=== PATIENT | female | born 1980 | race Caucasian/White ===

== ENCOUNTER → 2024-02-19 09:38 | Outpatient (BNVA) | payer OTHER, SELFPAY | PROVIDERS: Visit Provider Emergency Medicine | DX: R06.02 Shortness of breath (principal); H53.9 Unspecified visual disturbance; I10 Essential (primary) hypertension | CPT/HCPCS: 71046; 80053; 80061; 83880; 85025; 93005 ==

== ENCOUNTER → 2024-02-21 09:59 | Outpatient (BNVA) | payer OTHER, SELFPAY | PROVIDERS: PCP Nurse Practitioner; Visit Provider Nurse Practitioner | DX: D64.9 Anemia, unspecified (principal) | CPT/HCPCS: 82728; 83550; 84443; 85025 ==

== ENCOUNTER 2024-02-23 07:23 | Outpatient (CLI) | payer OTHER, SELFPAY ==
--- NOTE | 2024-02-23 08:00 | CTR_ITS ---
PROCEDURE INFORMATION: Exam: CT Chest With Contrast; Diagnostic Exam date and time: 02/23/2024 7:49 AM Age: 43 years old Clinical indication: Shortness of breath; Additional info: R06.02 - shortness of breath, lungs: The lungs are hyperinflated. There is volume loss TECHNIQUE: Imaging protocol: Diagnostic computed tomography of the chest with contrast. Radiation optimization: All CT scans at this facility use at least one of these dose optimization techniques: automated exposure control; mA and/or kV adjustment per patient size (includes targeted exams where dose is matched to clinical indication); or iterative reconstruction. Contrast material: OMNI 350; Contrast volume: 100 ml; Contrast route: INTRAVENOUS (IV); COMPARISON: CR XR chest 2V* [id number] 02/19/2024 9:50 AM RADIATION DOSE METRICS: Total DLP (mGy-cm): 293.1 FINDINGS: Lungs: There is atelectasis of the right upper lobe with complete collapse of the right middle lobe. There is a parenchymal nodule involving the right upper lobe measuring 7.7 mm in size. Pleural spaces: Unremarkable. No pneumothorax. No pleural effusion. Heart: Unremarkable. No cardiomegaly. No pericardial effusion. Lymph nodes: Within the retroperitoneum, There is a partially imaged slightly enlarged lymph node to the left of the aorta measuring 11 mm in size. There are enlarged mediastinal and right hilar lymph nodes. Vasculature: Marked the aorta is normal in caliber without evidence of aneurysm formation or dissection. The central pulmonary arteries are normal. Mediastinum: There is either a single large mass are multiple conglomeration of masses within the anterior superior mediastinum partially surrounding the right brachiocephalic and subclavian arteries and right common carotid artery. There is mass effect on the trachea shifting the trachea to the left there is also slight mass effect on the right mainstem bronchus. There is mass effect on the right upper lobe bronchus with significant mass effect on the right middle lobe bronchus with complete atelectasis of the right middle lobe. There is extension of the mass through the anterior chest wall primarily between the sternum and 2nd rib. There are additional large lymph nodes within the mediastinum and right hilum as well as within the base of the neck bilaterally. Maximal dimension is a proximally 12.4 cm AP dimension by 13.8 cm transverse dimension by 17.4 cm craniocaudad dimension. Bones and joints: No blastic or lytic bony lesions are appreciated. Soft tissues: Otherwise unremarkable. CT/CT chest w con* [id number] IMPRESSION: 1. Large anterior superior mediastinal mass with extension through the anterior chest wall with mediastinal adenopathy, right hilar adenopathy base of neck adenopathy, and suspected retroperitoneal adenopathy. There is a single parenchymal nodule involving the right upper lobe. Details are given above. Findings are likely related to lymphoma. Other possible considerations would include thymic tumors or germ cell tumors.
[2024-02-23] MEDS: iohexol 350 mg/mL 500 mL Btl (per mL) IV (08:06)
== END 2024-02-23 07:24 | disposition home or self-care (01) ==
LOC: RAD 07:23
PROVIDERS: PCP Nurse Practitioner; Visit Provider Emergency Medicine
DX: J98.11 Atelectasis (principal); R91.8 Other nonspecific abnormal finding of lung field; J98.19 Other pulmonary collapse; R59.0 Localized enlarged lymph nodes; J98.59 Other diseases of mediastinum, not elsewhere classified; D14.2 Benign neoplasm of trachea; H53.9 Unspecified visual disturbance
CPT/HCPCS: 71260; Q9967

== ENCOUNTER → 2024-03-01 13:07 | Outpatient (CLI) | payer OTHER, SELFPAY ==
--- NOTE | 2024-03-01 14:30 | MR_ITS ---
WS: [id number] MRI HEAD WITHOUT CONTRAST TECHNIQUE: Sagittal T1, T2 axial, T2 axial FLAIR, axial and coronal T1 images, axial susceptibility w eighted imaging, axial diffusion weighted images, and coronal T2 images were obtained. CLINICAL INFORMATION: H53.9 - Unspecified visual disturbance COMPARISON: None. FINDINGS: No evidence of restricted diffusion to suggest acute ischemia. Ventricular system and basal cisterns are patent. 2 or 3 tiny foci of T2 hyperintensity in the supratentorial white matter nonspecific in a patient this age but can be seen with hypertension, diabetes, and migraine headaches. Normal posterior fossa. Normal vascular flow voids at the skull base. No extra-axial fluid collection s. No evidence of mass or mass effect. Paranasal sinuses are well aerated. Normal posterior nasophary nx. Mastoid air cells are well aerated. No hemosiderin on the susceptibility weighted images. Normal optic chiasm and pituitary infundibulum. Temporal lobes and hippocampal formations are normal in appearance. No other acute findings. MR/MR head wo con* [id number] IMPRESSION: 1. No evidence of restricted diffusion to suggest acute ischemia. 2. A few tiny foci of T2 hyperintensity in the supratentorial white matter non specific in a patient this age but can be seen with hypertension, diabetes, and migraine headaches. 3. No other suspicious intracranial signal abnormalities 4. No other suspicious findings.
== END | disposition home or self-care (01) ==
LOC: RAD 13:07
PROVIDERS: PCP Nurse Practitioner; Visit Provider Nurse Practitioner
DX: H53.9 Unspecified visual disturbance (principal); G93.89 Other specified disorders of brain
CPT/HCPCS: 70551; 82728; 83550; 84443; 85025

== ENCOUNTER 2024-03-03 15:30 | Outpatient (CLI) | payer OTHER, SELFPAY ==
[2024-03-03] MEDS: iohexol 350 mg/mL 500 mL Btl (per mL) PO (14:22)
[2024-03-03] MEDS: iohexol 350 mg/mL 500 mL Btl (per mL) IV (14:33)
--- NOTE | 2024-03-03 15:30 | CTR_ITS ---
PROCEDURE INFORMATION: Exam: CT Abdomen And Pelvis With Contrast Exam date and time: 03/03/2024 2:30 PM Age: 43 years old Clinical indication: Mass, lump, or swelling; Generalized; Patient HX: Localized swelling, mass and lump on trunk. PT states lump on breast bone as indicated on CT chest last wk. PT denies any palpable masses/lumps on abd region. ; Additional info: R22.2 - localized swelling, mass and lump, trunk, large mass; Possible lymphoma TECHNIQUE: Imaging protocol: Computed tomography of the abdomen and pelvis with contrast. Radiation optimization: All CT scans at this facility use at least one of these dose optimization techniques: automated exposure control; mA and/or kV adjustment per patient size (includes targeted exams where dose is matched to clinical indication); or iterative reconstruction. Contrast material: OMNI 350; Contrast volume: 95 ml; Contrast route: INTRAVENOUS (IV); COMPARISON: CT chest w con* [id number] 02/23/2024 7:49 AM RADIATION DOSE METRICS: Total DLP (mGy-cm): 310.13 FINDINGS: Liver: Normal. No mass. Gallbladder and biliary ducts: Normal. No calcified stones. No ductal dilation. Pancreas: Normal. No ductal dilation. Spleen: The spleen is not enlarged, 10 cm. Adrenal glands: Normal. No mass. Kidneys and ureters: Normal. No hydronephrosis. Stomach and bowel: Unremarkable. No obstruction. No mucosal thickening. Appendix: No evidence of appendicitis. Intraperitoneal space: Unremarkable. No free air. No significant fluid collection. Vasculature: Unremarkable. No abdominal aortic aneurysm. Lymph nodes: There is moderate retroperitoneal/periaortic adenopathy extending along the left pelvic sidewall. The largest lymph node is along the left pelvic sidewall (3-71) and measures 1.8 x 3.8 cm in size. No Urinary bladder: Unremarkable as visualized. Reproductive: Unremarkable as visualized. Bones/joints: Unremarkable. No acute fracture. Soft tissues: Barely imaged mass infiltrating the epicardial fat on the right side. CT/CT abdomen pelvis w con* [id number] IMPRESSION: Moderate suspicious adenopathy.
== END 2024-03-03 15:31 | disposition home or self-care (01) ==
PROVIDERS: PCP Nurse Practitioner; Visit Provider Nurse Practitioner
DX: R22.2 Localized swelling, mass and lump, trunk (principal)
CPT/HCPCS: 74177; Q9967

== ENCOUNTER 2024-07-06 07:16 | Oncology outpatient (recurring) (ONCR) | payer OTHER, SELFPAY ==
[2024-07-06 08:03] LABS: Basophils # 0.1 10^3/uL (0.0-0.1); Basophils % 2.6 %; Eosinophils # 0.2 10^3/uL (0.0-0.8); Eosinophils % 4.7 %; Lymphocytes # 1.5 10^3/uL (0.8-4.8); Lymphocytes % 34.6 %; Mean Corpuscular HGB Conc 32.2 g/dL (30-55); Mean Corpuscular Hemoglobin 29.5 pg (27-33); Mean Corpuscular Volume 91.6 fl (85-98); Mean Platelet Volume 10.1 fL (7.4-10.4); Monocytes # 0.5 10^3/uL (0.2-0.9); Monocytes % 11.4 %; Neutrophils # 1.95 10^3/uL (1.8-7.7); Neutrophils % 46.2 %; Nucleated Red Blood Cells % 0 %; Platelet Count 414 10^3/cmm (157-399); Red Blood Count 4.04 10^6/uL (3.85-5.65); White Blood Count 4.22 10^3/uL (3.29-11.43)
[2024-07-06 08:20] LABS: Alanine Aminotransferase 7 U/L (0-33); Albumin Level 4.3 g/dL (3.5-5.2); Alkaline Phosphatase 62 U/L (35-105); Anion Gap 13.5 (5-19); Aspartate Amino Transferase 13 U/L (0-32); Blood Urea Nitrogen 13 mg/dL (6-20); Calcium 8.3 mg/dL (8.5-10.5); Carbon Dioxide 26 mmol/L (22-29); Chloride 105 mmol/L (98-107); Creatinine Clr Calc Pharmacy 95.1708; Ferritin 176 ng/mL (15-150); Globulin 2.1 g/dL (1.3-4.6); Glomerular Filtration Rate 78.7 mL/min (90-130); Glucose 108 mg/dL (65-115); Iron 46 ug/dL (37-145); Osmolality Calculated 291 mOsm/kg (285-295); Percent Saturation 19.5 % (20-50); Potassium 4.5 mmol/L (3.5-5.1); Sodium 140 mmol/L (136-145); Total Bilirubin 0.2 mg/dL (0.15-1.2); Total Iron Binding Capacity 235 mcg/dl; Total Protein 6.4 g/dL (6.6-8.7); Unsaturated Iron Binding 189 ug/dL (112-347)
[2024-07-06 08:24] LABS: Lactate Dehydrogenase 172 U/L (135-214)
[2024-07-06 09:21] LABS: Uric Acid 4.6 mg/dL (2.4-5.7)
[2024-07-06 09:28] LABS: Folate Level 9.2 ng/mL (4.8-37.3)
[2024-07-06] MEDS: sodium chloride 0.9% 250 ML 75 ML IV (09:28)
[2024-07-06] MEDS: palonosetron 0.25 mg/5 mL SDV IVP (09:28)
[2024-07-06] MEDS: aprepitant 130 mg/18 ml SDV IVP (09:29)
[2024-07-06] MEDS: famotidine 20 mg/2 mL INJ IVP (09:36)
[2024-07-06] MEDS: dexamethasone 4 mg/mL INJ 12 MG IVP (09:39)
[2024-07-06] MEDS: OLANZapine 5 mg TABLET PO (09:40)
[2024-07-06] MEDS: DOXOrubicin 2 mg/ml MDV 46 MG IVP (10:27)
[2024-07-06] MEDS: VINBLASTINE IV (10:42)
[2024-07-06] MEDS: SODIUM CHLORIDE 0.9% IV ×2 (10:42→11:15)
[2024-07-06] MEDS: DACARBAZINE IV (11:15)
[2024-07-06] MEDS: nivolumab 480 MG in sodium chloride 0.9% 250 ML 596 MG IV (12:40)
[2024-07-06 13:55] VITALS: BP 100/61; PULSE 75; TEMP 36.4; O2SAT 97
== END 2024-07-06 23:59 | disposition home or self-care (01) ==
PROVIDERS: Internal Medicine; PCP Nurse Practitioner; Visit Provider Internal Medicine Hematology & Oncology
DX: Z51.11 Encounter for antineoplastic chemotherapy (principal); Z51.12 Encounter for antineoplastic immunotherapy; C81.90 Hodgkin lymphoma, unspecified, unspecified site; Z79.899 Other long term (current) drug therapy
CPT/HCPCS: 80053; 82728; 82746; 83540; 83550; 83615; 84550; 85025; 96375; 96409; 96411; 96413; 96417; A4222; J0185; J1100; J2469; J3490; J7040; J7050; J9000; J9130; J9299; J9360

== ENCOUNTER 2024-07-19 06:43 | Oncology outpatient (recurring) (ONCR) | payer OTHER, SELFPAY ==
[2024-07-19 07:11] LABS: Basophils # 0.1 10^3/uL (0.0-0.1); Basophils % 3.4 %; Eosinophils # 0.1 10^3/uL (0.0-0.8); Eosinophils % 4.2 %; Hematocrit 36.1 % (36-47); Lymphocytes # 1.5 10^3/uL (0.8-4.8); Mean Corpuscular HGB Conc 32.4 g/dL (30-55); Mean Corpuscular Hemoglobin 29.8 pg (27-33); Mean Corpuscular Volume 92.1 fl (85-98); Monocytes # 0.4 10^3/uL (0.2-0.9); Monocytes % 16.9 %; Neutrophils % 16.1 %; Nucleated Red Blood Cells % 0 %; Platelet Count 463 10^3/cmm (157-399); Red Blood Count 3.92 10^6/uL (3.85-5.65); Red Cell Distribution Width 21.8 % (12.1-15.1); White Blood Count 2.61 10^3/uL (3.29-11.43)
[2024-07-19 07:19] LABS: Alanine Aminotransferase 6 U/L (0-33); Albumin Level 4.2 g/dL (3.5-5.2); Alkaline Phosphatase 61 U/L (35-105); Anion Gap 15.9 (5-19); Aspartate Amino Transferase 18 U/L (0-32); Blood Urea Nitrogen 10 mg/dL (6-20); Calcium 8.9 mg/dL (8.5-10.5); Carbon Dioxide 22 mmol/L (22-29); Chloride 104 mmol/L (98-107); Globulin 2.5 g/dL (1.3-4.6); Glomerular Filtration Rate 109.6 mL/min (90-130); Glucose 147 mg/dL (65-115); Magnesium 1.7 mg/dL (1.7-2.3); Osmolality Calculated 288 mOsm/kg (285-295); Potassium 3.9 mmol/L (3.5-5.1); Sodium 138 mmol/L (136-145); Total Bilirubin 0.2 mg/dL (0.15-1.2); Total Protein 6.7 g/dL (6.6-8.7); Uric Acid 3.7 mg/dL (2.4-5.7)
[2024-07-19 07:32] LABS: Neutrophils # 0.42 10^3/uL (1.8-7.7)
[2024-07-19 09:47] VITALS: BP 115/76; PULSE 69; RESP 16; TEMP 36.1; O2SAT 99
[2024-07-19 09:51] VITALS: BMI 24.5
[2024-07-19] MEDS: OLANZapine 5 mg TABLET 2.5 MG PO (10:33)
[2024-07-19] MEDS: sodium chloride 0.9% 250 ML 75 ML IV (10:35)
[2024-07-19] MEDS: dexamethasone 4 mg/mL INJ 12 MG IVP (10:48)
[2024-07-19] MEDS: palonosetron 0.25 mg/5 mL SDV IVP (10:51)
[2024-07-19] MEDS: famotidine 20 mg/2 mL INJ IVP (10:53)
[2024-07-19] MEDS: aprepitant 130 mg/18 ml SDV IVP (10:55)
[2024-07-19] MEDS: DOXOrubicin 2 mg/ml MDV 46 MG IVP (11:23)
[2024-07-19] MEDS: SODIUM CHLORIDE 0.9% IV ×2 (11:38→12:28)
[2024-07-19] MEDS: VINBLASTINE IV (11:38)
[2024-07-19] MEDS: DACARBAZINE IV (12:28)
[2024-07-19 14:00] VITALS: BP 138/75; PULSE 86; RESP 16; TEMP 36.9; O2SAT 95
== END 2024-07-22 23:59 | disposition home or self-care (01) ==
PROVIDERS: Internal Medicine; PCP Nurse Practitioner; Visit Provider Internal Medicine Hematology & Oncology
DX: Z51.11 Encounter for antineoplastic chemotherapy (principal); C81.22 Mixed cellularity Hodgkin lymphoma, intrathoracic lymph nodes; D70.1 Agranulocytosis secondary to cancer chemotherapy; T45.1X5A Adverse effect of antineoplastic and immunosuppressive drugs, initial encounter; N91.2 Amenorrhea, unspecified; Z79.52 Long term (current) use of systemic steroids; Z79.899 Other long term (current) drug therapy
CPT/HCPCS: 80053; 83735; 84550; 85025; 96375; 96411; 96413; 96417; J0185; J1100; J2469; J3490; J7040; J7050; J9000; J9130; J9360

== ENCOUNTER 2024-08-03 08:00 | Oncology outpatient (recurring) (ONCR) | payer OTHER, SELFPAY ==
[2024-07-24 07:42] LABS: Basophils # 0.1 10^3/uL (0.0-0.1); Basophils % 3.5 %; Eosinophils # 0.1 10^3/uL (0.0-0.8); Hematocrit 37.3 % (36-47); Lymphocytes # 1.3 10^3/uL (0.8-4.8); Lymphocytes % 37.4 %; Monocytes # 0.1 10^3/uL (0.2-0.9); Monocytes % 2.6 %; Neutrophils % 49.8 %; Nucleated Red Blood Cells % 0 %; Platelet Count 330 10^3/cmm (157-399); Red Blood Count 3.97 10^6/uL (3.85-5.65); Red Cell Distribution Width 20.9 % (12.1-15.1); White Blood Count 3.42 10^3/uL (3.29-11.43)
[2024-07-24 08:04] LABS: Alanine Aminotransferase 11 U/L (0-33); Albumin Level 4.2 g/dL (3.5-5.2); Alkaline Phosphatase 54 U/L (35-105); Anion Gap 16.3 (5-19); Aspartate Amino Transferase 19 U/L (0-32); Blood Urea Nitrogen 13 mg/dL (6-20); Calcium 9.1 mg/dL (8.5-10.5); Carbon Dioxide 24 mmol/L (22-29); Chloride 103 mmol/L (98-107); Globulin 2.5 g/dL (1.3-4.6); Glomerular Filtration Rate 135.3 mL/min (90-130); Glucose 105 mg/dL (65-115); Osmolality Calculated 288 mOsm/kg (285-295); Potassium 4.3 mmol/L (3.5-5.1); Sodium 139 mmol/L (136-145); Total Bilirubin 0.3 mg/dL (0.15-1.2); Total Protein 6.7 g/dL (6.6-8.7)
[2024-08-03 08:02] LABS: Basophils # 0.1 10^3/uL (0.0-0.1); Basophils % 4.4 %; Eosinophils # 0.1 10^3/uL (0.0-0.8); Eosinophils % 5.2 %; Hematocrit 33.5 % (36-47); Lymphocytes # 1.4 10^3/uL (0.8-4.8); Lymphocytes % 52.6 %; Mean Corpuscular HGB Conc 32.8 g/dL (30-55); Mean Corpuscular Hemoglobin 30.9 pg (27-33); Mean Corpuscular Volume 94.1 fl (85-98); Mean Platelet Volume 9.7 fL (7.4-10.4); Monocytes # 0.5 10^3/uL (0.2-0.9); Monocytes % 19.3 %; Neutrophils % 18.1 %; Nucleated Red Blood Cells % 0 %; Platelet Count 378 10^3/cmm (157-399); Red Blood Count 3.56 10^6/uL (3.85-5.65); Red Cell Distribution Width 20.7 % (12.1-15.1)
[2024-08-03 08:28] LABS: HCG Qualitative Urine. Negative (Negative)
[2024-08-03 08:33] LABS: Alanine Aminotransferase 7 U/L (0-33); Albumin Level 4.1 g/dL (3.5-5.2); Alkaline Phosphatase 52 U/L (35-105); Anion Gap 14.9 (5-19); Aspartate Amino Transferase 15 U/L (0-32); Blood Urea Nitrogen 13 mg/dL (6-20); Calcium 8.8 mg/dL (8.5-10.5); Carbon Dioxide 24 mmol/L (22-29); Chloride 103 mmol/L (98-107); Creatinine Clr Calc Pharmacy 128.3375; Globulin 2.4 g/dL (1.3-4.6); Glomerular Filtration Rate 109.6 mL/min (90-130); Glucose 121 mg/dL (65-115); Osmolality Calculated 287 mOsm/kg (285-295); Potassium 3.9 mmol/L (3.5-5.1); Sodium 138 mmol/L (136-145); Total Bilirubin 0.2 mg/dL (0.15-1.2); Total Protein 6.5 g/dL (6.6-8.7)
[2024-08-03 08:34] LABS: Follicle Stimulating Hormone 51.2 mIU/mL; Neutrophils # 0.49 10^3/uL (1.8-7.7)
[2024-08-03] MEDS: sodium chloride 0.9% 250 ML 50 ML IV (10:48)
[2024-08-03] MEDS: acetaminophen 325 mg Tablet 650 MG PO (10:48)
[2024-08-03] MEDS: aprepitant 130 mg/18 ml SDV IVP (10:49)
[2024-08-03] MEDS: dexamethasone 4 mg/mL INJ 12 MG IVP (10:56)
[2024-08-03] MEDS: famotidine 20 mg/2 mL INJ 40 MG IVP (11:00)
[2024-08-03] MEDS: palonosetron 0.25 mg/5 mL SDV IVP (11:04)
[2024-08-03] MEDS: DOXOrubicin 2 mg/ml MDV 46 MG IVP (11:50)
[2024-08-03] MEDS: SODIUM CHLORIDE 0.9% IV ×2 (12:03→12:30)
[2024-08-03] MEDS: VINBLASTINE IV (12:03)
[2024-08-03] MEDS: DACARBAZINE IV (12:30)
[2024-08-03] MEDS: nivolumab 480 MG in sodium chloride 0.9% 250 ML 596 MG IV (13:51)
[2024-08-03 15:01] VITALS: BP 123/59; PULSE 60; RESP 16; TEMP 36.4; O2SAT 99
== END 2024-08-03 23:59 | disposition home or self-care (01) ==
PROVIDERS: Internal Medicine; Nurse Practitioner; PCP Nurse Practitioner; Visit Provider Internal Medicine Medical Oncology
DX: Z53.9 Procedure and treatment not carried out, unspecified reason (principal); C81.90 Hodgkin lymphoma, unspecified, unspecified site; Z79.620 Long term (current) use of immunosuppressive biologic; N91.2 Amenorrhea, unspecified; Z51.11 Encounter for antineoplastic chemotherapy
CPT/HCPCS: 36591; 80053; 81025; 82670; 83001; 83002; 85025; 96375; 96409; 96411; 96413; 96417; J0185; J1100; J2469; J3490; J7040; J7050; J9000; J9130; J9299; J9360

== ENCOUNTER 2024-08-17 07:05 | Oncology outpatient (recurring) (ONCR) | payer OTHER, SELFPAY ==
[2024-08-17 08:03] LABS: Basophils # 0.1 10^3/uL (0.0-0.1); Basophils % 3.3 %; Eosinophils # 0.1 10^3/uL (0.0-0.8); Eosinophils % 4.5 %; Lymphocytes # 1.6 10^3/uL (0.8-4.8); Lymphocytes % 65.3 %; Mean Corpuscular HGB Conc 33.8 g/dL (30-55); Mean Corpuscular Hemoglobin 32.1 pg (27-33); Mean Platelet Volume 9.8 fL (7.4-10.4); Monocytes # 0.4 10^3/uL (0.2-0.9); Monocytes % 17.1 %; Neutrophils % 9.4 %; Nucleated Red Blood Cells % 0 %; Platelet Count 347 10^3/cmm (157-399); Red Blood Count 3.58 10^6/uL (3.85-5.65); Red Cell Distribution Width 18.6 % (12.1-15.1); White Blood Count 2.45 10^3/uL (3.29-11.43)
[2024-08-17 08:31] LABS: Alanine Aminotransferase 8 U/L (0-33); Albumin Level 4.2 g/dL (3.5-5.2); Alkaline Phosphatase 57 U/L (35-105); Aspartate Amino Transferase 17 U/L (0-32); Blood Urea Nitrogen 9 mg/dL (6-20); Calcium 8.8 mg/dL (8.5-10.5); Carbon Dioxide 23 mmol/L (22-29); Chloride 105 mmol/L (98-107); Globulin 2.2 g/dL (1.3-4.6); Glomerular Filtration Rate 91.8 mL/min (90-130); Glucose 148 mg/dL (65-115); Lactate Dehydrogenase 139 U/L (135-214); Osmolality Calculated 291 mOsm/kg (285-295); Sodium 140 mmol/L (136-145); Thyroid Stimulating Hormone 1.41 uIU/mL (0.27-4.20); Total Bilirubin 0.2 mg/dL (0.15-1.2); Total Protein 6.4 g/dL (6.6-8.7)
[2024-08-17 08:36] LABS: Neutrophils # 0.23 10^3/uL (1.8-7.7)
[2024-08-17] MEDS: sodium chloride 0.9% 250 ML 75 ML IV (11:51)
[2024-08-17] MEDS: dexamethasone 4 mg/mL INJ 12 MG IVP (11:54)
[2024-08-17] MEDS: palonosetron 0.25 mg/5 mL SDV IVP (11:59)
[2024-08-17] MEDS: aprepitant 130 mg/18 ml SDV IVP (12:03)
[2024-08-17] MEDS: famotidine 20 mg/2 mL INJ 40 MG IVP (12:12)
[2024-08-17] MEDS: DOXOrubicin 2 mg/ml MDV 46 MG IVP (13:11)
[2024-08-17] MEDS: SODIUM CHLORIDE 0.9% IV ×2 (13:30→13:56)
[2024-08-17] MEDS: VINBLASTINE IV (13:30)
[2024-08-17] MEDS: DACARBAZINE IV (13:56)
[2024-08-17] MEDS: sodium chloride 0.9% (100 ml) 100 ML 35 ML (14:32)
== END 2024-08-22 23:59 | disposition home or self-care (01) ==
PROVIDERS: Nurse Practitioner; PCP Nurse Practitioner; Visit Provider Internal Medicine
DX: C81.22 Mixed cellularity Hodgkin lymphoma, intrathoracic lymph nodes (principal); Z51.11 Encounter for antineoplastic chemotherapy; Z79.52 Long term (current) use of systemic steroids; Z87.891 Personal history of nicotine dependence; D50.9 Iron deficiency anemia, unspecified; D70.1 Agranulocytosis secondary to cancer chemotherapy; T45.1X5A Adverse effect of antineoplastic and immunosuppressive drugs, initial encounter
CPT/HCPCS: 80053; 83615; 84443; 85025; 96361; 96375; 96409; 96411; 96413; 96417; J0185; J1100; J2469; J3490; J7040; J7050; J9000; J9130; J9360

== ENCOUNTER 2024-08-31 07:03 | Oncology outpatient (recurring) (ONCR) | payer OTHER, SELFPAY ==
[2024-08-31 08:03] LABS: Basophils # 0.1 10^3/uL (0.0-0.1); Basophils % 3.4 %; Eosinophils # 0.1 10^3/uL (0.0-0.8); Eosinophils % 3.9 %; Hematocrit 34.2 % (36-47); Lymphocytes # 1.4 10^3/uL (0.8-4.8); Lymphocytes % 66.7 %; Mean Corpuscular Hemoglobin 32.1 pg (27-33); Mean Corpuscular Volume 97.2 fl (85-98); Mean Platelet Volume 10.1 fL (7.4-10.4); Monocytes # 0.3 10^3/uL (0.2-0.9); Monocytes % 16.2 %; Neutrophils % 9.8 %; Nucleated Red Blood Cells % 0 %; Platelet Count 334 10^3/cmm (157-399); Red Blood Count 3.52 10^6/uL (3.85-5.65); Red Cell Distribution Width 17.1 % (12.1-15.1); White Blood Count 2.04 10^3/uL (3.29-11.43)
[2024-08-31 08:19] LABS: Alanine Aminotransferase 9 U/L (0-33); Albumin Level 4.1 g/dL (3.5-5.2); Alkaline Phosphatase 47 U/L (35-105); Anion Gap 14.1 (5-19); Aspartate Amino Transferase 12 U/L (0-32); Blood Urea Nitrogen 18 mg/dL (6-20); Calcium 8.8 mg/dL (8.5-10.5); Carbon Dioxide 24 mmol/L (22-29); Chloride 105 mmol/L (98-107); Globulin 2.3 g/dL (1.3-4.6); Glomerular Filtration Rate 109.6 mL/min (90-130); Glucose 113 mg/dL (65-115); Lactate Dehydrogenase 138 U/L (135-214); Osmolality Calculated 291 mOsm/kg (285-295); Phosphorus 4.6 mg/dL (2.5-4.5); Potassium 4.1 mmol/L (3.5-5.1); Sodium 139 mmol/L (136-145); Total Bilirubin 0.2 mg/dL (0.15-1.2); Total Protein 6.4 g/dL (6.6-8.7); Uric Acid 3.3 mg/dL (2.4-5.7)
[2024-08-31 08:20] LABS: Erythrocyte Sedimentation Rate 1 mm/hr (0-15)
[2024-08-31] MEDS: sodium chloride 0.9% 250 ML 75 ML IV (11:21)
[2024-08-31] MEDS: famotidine 20 mg/2 mL INJ 40 MG IVP (11:23)
[2024-08-31] MEDS: aprepitant 130 mg/18 ml SDV IVP (11:26)
[2024-08-31] MEDS: palonosetron 0.25 mg/5 mL SDV IVP (11:31)
[2024-08-31] MEDS: dexamethasone 4 mg/mL INJ 12 MG IVP (11:34)
[2024-08-31] MEDS: DOXOrubicin 2 mg/ml MDV 46 MG IVP (12:13)
[2024-08-31] MEDS: SODIUM CHLORIDE 0.9% IV ×2 (12:24→13:17)
[2024-08-31] MEDS: VINBLASTINE IV (12:24)
[2024-08-31] MEDS: DACARBAZINE IV (13:17)
[2024-08-31] MEDS: nivolumab 480 MG in sodium chloride 0.9% 250 ML 596 MG IV (14:30)
[2024-08-31 15:45] VITALS: BP 105/64; PULSE 74; O2SAT 96
== END 2024-08-31 23:59 | disposition home or self-care (01) ==
PROVIDERS: Nurse Practitioner; PCP Nurse Practitioner; Visit Provider Internal Medicine
DX: C81.22 Mixed cellularity Hodgkin lymphoma, intrathoracic lymph nodes (principal); Z51.11 Encounter for antineoplastic chemotherapy; Z51.12 Encounter for antineoplastic immunotherapy; D50.9 Iron deficiency anemia, unspecified; D70.1 Agranulocytosis secondary to cancer chemotherapy; I87.1 Compression of vein; T45.1X5A Adverse effect of antineoplastic and immunosuppressive drugs, initial encounter; Z79.899 Other long term (current) drug therapy
CPT/HCPCS: 80053; 83615; 84100; 84550; 85025; 85651; 96375; 96411; 96413; 96417; A4222; J0185; J1100; J2469; J3490; J7040; J7050; J9000; J9130; J9299; J9360

== ENCOUNTER 2024-09-14 08:30 | Oncology outpatient (recurring) (ONCR) | payer OTHER, SELFPAY ==
[2024-09-07 14:02] LABS: Basophils # 0.1 10^3/uL (0.0-0.1); Basophils % 2.3 %; Eosinophils # 0.1 10^3/uL (0.0-0.8); Hematocrit 33.7 % (36-47); Lymphocytes # 1.9 10^3/uL (0.8-4.8); Lymphocytes % 53.6 %; Mean Corpuscular HGB Conc 33.2 g/dL (30-55); Mean Corpuscular Volume 96.3 fl (85-98); Mean Platelet Volume 10.7 fL (7.4-10.4); Monocytes # 0.1 10^3/uL (0.2-0.9); Monocytes % 3.2 %; Neutrophils # 1.35 10^3/uL (1.8-7.7); Neutrophils % 38.6 %; Nucleated Red Blood Cells % 0 %; Platelet Count 317 10^3/cmm (157-399); Red Cell Distribution Width 15.9 % (12.1-15.1); White Blood Count 3.49 10^3/uL (3.29-11.43)
[2024-09-07 14:04] LABS: Erythrocyte Sedimentation Rate 1 mm/hr (0-15)
[2024-09-07 14:21] LABS: Alanine Aminotransferase 14 U/L (0-33); Alkaline Phosphatase 56 U/L (35-105); Blood Urea Nitrogen 19 mg/dL (6-20); Calcium 8.6 mg/dL (8.5-10.5); Carbon Dioxide 23 mmol/L (22-29); Chloride 101 mmol/L (98-107); Globulin 2.2 g/dL (1.3-4.6); Glomerular Filtration Rate 135.3 mL/min (90-130); Glucose 128 mg/dL (65-115); Osmolality Calculated 290 mOsm/kg (285-295); Phosphorus 3.1 mg/dL (2.5-4.5); Sodium 138 mmol/L (136-145); Total Bilirubin 0.2 mg/dL (0.15-1.2); Total Protein 6.2 g/dL (6.6-8.7); Uric Acid 3.3 mg/dL (2.4-5.7)
[2024-09-07 14:25] LABS: Slide Review Slide Review Perform
[2024-09-07 14:27] LABS: Anion Gap 17.6 (5-19); Potassium 3.6 mmol/L (3.5-5.1)
[2024-09-07 14:28] LABS: Aspartate Amino Transferase 16 U/L (0-32); Lactate Dehydrogenase 180 U/L (135-214)
[2024-09-14 07:51] LABS: Basophils # 0.1 10^3/uL (0.0-0.1); Basophils % 2.8 %; Eosinophils # 0.1 10^3/uL (0.0-0.8); Eosinophils % 3.1 %; Hematocrit 35.1 % (36-47); Lymphocytes # 1.4 10^3/uL (0.8-4.8); Lymphocytes % 42.7 %; Mean Corpuscular Hemoglobin 32.1 pg (27-33); Mean Corpuscular Volume 97.2 fl (85-98); Monocytes # 0.5 10^3/uL (0.2-0.9); Monocytes % 13.9 %; Neutrophils # 1.21 10^3/uL (1.8-7.7); Neutrophils % 37.5 %; Nucleated Red Blood Cells % 0 %; Platelet Count 356 10^3/cmm (157-399); Red Blood Count 3.61 10^6/uL (3.85-5.65); Red Cell Distribution Width 15.9 % (12.1-15.1); White Blood Count 3.23 10^3/uL (3.29-11.43)
[2024-09-14 08:06] LABS: Alanine Aminotransferase 11 U/L (0-33); Albumin Level 4.1 g/dL (3.5-5.2); Alkaline Phosphatase 52 U/L (35-105); Anion Gap 17.2 (5-19); Aspartate Amino Transferase 15 U/L (0-32); Blood Urea Nitrogen 13 mg/dL (6-20); Carbon Dioxide 23 mmol/L (22-29); Chloride 102 mmol/L (98-107); Creatinine Clr Calc Pharmacy 128.3815; Globulin 2.3 g/dL (1.3-4.6); Glomerular Filtration Rate 109.6 mL/min (90-130); Glucose 142 mg/dL (65-115); Osmolality Calculated 289 mOsm/kg (285-295); Potassium 4.2 mmol/L (3.5-5.1); Sodium 138 mmol/L (136-145); Total Bilirubin 0.2 mg/dL (0.15-1.2); Total Protein 6.4 g/dL (6.6-8.7)
[2024-09-14] MEDS: aprepitant 130 mg/18 ml SDV IVP (09:22)
[2024-09-14] MEDS: palonosetron 0.25 mg/5 mL SDV IVP (09:27)
[2024-09-14] MEDS: famotidine 20 mg/2 mL INJ 40 MG IVP (09:31)
[2024-09-14] MEDS: dexamethasone 4 mg/mL INJ 12 MG IVP (09:35)
[2024-09-14] MEDS: sodium chloride 0.9% 250 ML 75 ML IV (10:06)
[2024-09-14] MEDS: DOXOrubicin 2 mg/ml MDV 46 MG IVP (10:07)
[2024-09-14] MEDS: VINBLASTINE IV (10:24)
[2024-09-14] MEDS: SODIUM CHLORIDE 0.9% IV ×2 (10:24→10:57)
[2024-09-14] MEDS: DACARBAZINE IV (10:57)
[2024-09-14 12:22] VITALS: BP 120/70; TEMP 35.8
== END 2024-09-22 23:59 | disposition home or self-care (01) ==
PROVIDERS: Nurse Practitioner Family; PCP Nurse Practitioner; Visit Provider Internal Medicine
DX: Z53.9 Procedure and treatment not carried out, unspecified reason; Z51.11 Encounter for antineoplastic chemotherapy; C81.22 Mixed cellularity Hodgkin lymphoma, intrathoracic lymph nodes; Z79.52 Long term (current) use of systemic steroids; Z79.899 Other long term (current) drug therapy
CPT/HCPCS: 36591; 80053; 83615; 84100; 84550; 85025; 85651; 96375; 96411; 96413; 96417; J0185; J1100; J2469; J3490; J7040; J7050; J9000; J9130; J9360

== ENCOUNTER 2024-09-28 07:08 | Oncology outpatient (recurring) (ONCR) | payer OTHER, SELFPAY ==
[2024-09-28 07:52] LABS: Basophils # 0.1 10^3/uL (0.0-0.1); Basophils % 2.2 %; Eosinophils # 0.1 10^3/uL (0.0-0.8); Eosinophils % 3.1 %; Hematocrit 34.1 % (36-47); Lymphocytes # 1.4 10^3/uL (0.8-4.8); Lymphocytes % 62.2 %; Mean Corpuscular HGB Conc 33.4 g/dL (30-55); Mean Corpuscular Hemoglobin 32.5 pg (27-33); Mean Corpuscular Volume 97.2 fl (85-98); Monocytes # 0.4 10^3/uL (0.2-0.9); Monocytes % 18.2 %; Neutrophils % 14.3 %; Nucleated Red Blood Cells % 0 %; Platelet Count 382 10^3/cmm (157-399); Red Blood Count 3.51 10^6/uL (3.85-5.65); Red Cell Distribution Width 15.5 % (12.1-15.1); White Blood Count 2.25 10^3/uL (3.29-11.43)
[2024-09-28 08:11] LABS: Alanine Aminotransferase 10 U/L (0-33); Albumin Level 4.2 g/dL (3.5-5.2); Alkaline Phosphatase 61 U/L (35-105); Aspartate Amino Transferase 15 U/L (0-32); Blood Urea Nitrogen 9 mg/dL (6-20); Carbon Dioxide 23 mmol/L (22-29); Chloride 105 mmol/L (98-107); Creatinine Clr Calc Pharmacy 128.2943; Globulin 2.7 g/dL (1.3-4.6); Glomerular Filtration Rate 109.6 mL/min (90-130); Glucose 117 mg/dL (65-115); Lactate Dehydrogenase 155 U/L (135-214); Osmolality Calculated 292 mOsm/kg (285-295); Sodium 141 mmol/L (136-145); Total Bilirubin 0.2 mg/dL (0.15-1.2); Total Protein 6.9 g/dL (6.6-8.7); Uric Acid 3.9 mg/dL (2.4-5.7)
[2024-09-28 09:08] LABS: Erythrocyte Sedimentation Rate 2 mm/hr (0-15)
[2024-09-28 09:14] LABS: Neutrophils # 0.32 10^3/uL (1.8-7.7)
== END 2024-10-20 23:59 | disposition home or self-care (01) ==
PROVIDERS: Nurse Practitioner Family; PCP Nurse Practitioner; Visit Provider Internal Medicine
DX: C81.22 Mixed cellularity Hodgkin lymphoma, intrathoracic lymph nodes (principal); Z87.891 Personal history of nicotine dependence; I87.1 Compression of vein; D64.9 Anemia, unspecified; D70.1 Agranulocytosis secondary to cancer chemotherapy; T45.1X5A Adverse effect of antineoplastic and immunosuppressive drugs, initial encounter; Z95.828 Presence of other vascular implants and grafts; Z98.818 Other dental procedure status
CPT/HCPCS: 36591; 80053; 83615; 84550; 85025; 85651

== ENCOUNTER 2024-12-28 06:57 | Oncology outpatient (recurring) (ONCR) | payer OTHER, SELFPAY ==
[2024-12-28 07:50] LABS: Basophils # 0.1 10^3/uL (0.0-0.1); Basophils % 1.8 %; Eosinophils # 0.2 10^3/uL (0.0-0.8); Hematocrit 43.1 % (36-47); Lymphocytes % 36.8 %; Mean Corpuscular HGB Conc 32.9 g/dL (30-55); Mean Corpuscular Hemoglobin 32.1 pg (27-33); Mean Corpuscular Volume 97.3 fl (85-98); Mean Platelet Volume 10.2 fL (7.4-10.4); Monocytes # 0.5 10^3/uL (0.2-0.9); Monocytes % 9.1 %; Neutrophils # 2.65 10^3/uL (1.8-7.7); Neutrophils % 48.1 %; Nucleated Red Blood Cells % 0 %; Platelet Count 319 10^3/cmm (157-399); Red Blood Count 4.43 10^6/uL (3.85-5.65); Red Cell Distribution Width 12.4 % (12.1-15.1); White Blood Count 5.51 10^3/uL (3.29-11.43)
[2024-12-28 08:21] LABS: Alanine Aminotransferase 16 U/L (0-33); Albumin Level 4.8 g/dL (3.5-5.2); Alkaline Phosphatase 80 U/L (35-105); Blood Urea Nitrogen 18 mg/dL (6-20); Calcium 10.4 mg/dL (8.5-10.5); Carbon Dioxide 26 mmol/L (22-29); Chloride 103 mmol/L (98-107); Globulin 3.3 g/dL (1.3-4.6); Glomerular Filtration Rate 68.7 mL/min (90-130); Glucose 74 mg/dL (65-115); Osmolality Calculated 297 mOsm/kg (285-295); Sodium 143 mmol/L (136-145); Total Bilirubin 0.2 mg/dL (0.15-1.2); Total Protein 8.1 g/dL (6.6-8.7)
[2024-12-28 08:32] LABS: Anion Gap 18.4 (5-19); Aspartate Amino Transferase 21 U/L (0-32); Lactate Dehydrogenase 224 U/L (135-214); Potassium 4.4 mmol/L (3.5-5.1)
== END 2025-01-20 23:59 | disposition home or self-care (01) ==
PROVIDERS: Nurse Practitioner Family; PCP Nurse Practitioner; Visit Provider Internal Medicine
DX: C81.22 Mixed cellularity Hodgkin lymphoma, intrathoracic lymph nodes (principal)
CPT/HCPCS: 36415; 80053; 83615; 85025

== ENCOUNTER 2025-04-05 11:13 | Oncology outpatient (recurring) (ONCR) | payer OTHER, SELFPAY ==
[2025-04-05 11:45] LABS: Hematocrit 36.6 % (36-47); Hemoglobin 12.30 g/dL (11.27-16.99); Mean Corpuscular HGB Conc 33.6 g/dL (30-55); Mean Corpuscular Hemoglobin 32.6 pg (27-33); Mean Corpuscular Volume 97.1 fl (85-98); Nucleated Red Blood Cells % 0 %; Platelet Count 312 10^3/cmm (157-399); Red Blood Count 3.77 10^6/uL (3.85-5.65); White Blood Count 6.88 10^3/uL (3.29-11.43)
[2025-04-05 12:03] LABS: Alanine Aminotransferase 10 U/L (0-33); Albumin Level 4.4 g/dL (3.5-5.2); Alkaline Phosphatase 57 U/L (35-105); Anion Gap 14.6 (5-19); Aspartate Amino Transferase 13 U/L (0-32); Blood Urea Nitrogen 14 mg/dL (6-20); Calcium 9.2 mg/dL (8.5-10.5); Carbon Dioxide 27 mmol/L (22-29); Chloride 103 mmol/L (98-107); Ferritin 137 ng/mL (15-150); Globulin 2.4 g/dL (1.3-4.6); Glucose 103 mg/dL (65-115); Iron 74 ug/dL (37-145); Osmolality Calculated 291 mOsm/kg (285-295); Potassium 4.6 mmol/L (3.5-5.1); Sodium 140 mmol/L (136-145); Total Iron Binding Capacity 228 mcg/dl; Total Protein 6.8 g/dL (6.6-8.7); Unsaturated Iron Binding 154 ug/dL (112-347); Uric Acid 4.8 mg/dL (2.4-5.7)
== END 2025-04-22 23:59 | disposition home or self-care (01) ==
PROVIDERS: PCP Nurse Practitioner; Visit Provider Internal Medicine
DX: C81.22 Mixed cellularity Hodgkin lymphoma, intrathoracic lymph nodes (principal); D70.1 Agranulocytosis secondary to cancer chemotherapy; T45.1X5A Adverse effect of antineoplastic and immunosuppressive drugs, initial encounter; I87.1 Compression of vein; D64.9 Anemia, unspecified
CPT/HCPCS: 36415; 80053; 82232; 82728; 83540; 83550; 83615; 84550; 85025